=== PATIENT | female | born 1960 | race Caucasian/White ===

== ENCOUNTER 2021-07-26 20:40 | Emergency (ER) | payer OTHER ==
[~2021-07-26] VITALS: Ht 170.2 cm; Wt 59.0 kg
[2021-07-26] MEDS ORDERED: LEVOTHYROXINE25 MCG (21:26)
[2021-07-26] MEDS ORDERED: BACTRIM DS TAB1 EACH PO (22:56)
[2021-07-26] MEDS ORDERED: PEPCID AC20 MG PO (22:56)
[2021-07-26] MEDS ORDERED: NAPROXEN375 MG PO (22:56)
[2021-07-26] MEDS ORDERED: PROTONIX20 MG PO (22:56)
[2021-07-26] MEDS ORDERED: CARAFATE1 GM PO (22:56)
== END 2021-07-26 23:04 | disposition home or self-care (01) ==
LOC: ER 20:40
DX: S61.051A Open bite of right thumb without damage to nail, initial encounter (principal); L08.89 Other specified local infections of the skin and subcutaneous tissue; W54.0XXA Bitten by dog, initial encounter; Y93.89 Activity, other specified; Y92.018 Other place in single-family (private) house as the place of occurrence of the external cause; Y99.8 Other external cause status

== ENCOUNTER 2021-08-31 13:13 | Emergency (ER) | payer OTHER ==
[~2021-08-31] VITALS: Ht 170.2 cm; Wt 59.0 kg
[~2021-08-31 13:13] MED LIST: BACTRIM DS TAB1 EACH PO; CARAFATE1 GM PO; LEVOTHYROXINE25 MCG; NAPROXEN375 MG PO; PEPCID AC20 MG PO; PROTONIX20 MG PO
[2021-08-31] MEDS ORDERED: TIROSINT25 MCG PO (13:25)
== END 2021-08-31 16:08 | disposition home or self-care (01) ==
LOC: ER 13:13
DX: T16.2XXA Foreign body in left ear, initial encounter (principal); X58.XXXA Exposure to other specified factors, initial encounter; Y93.E8 Activity, other personal hygiene; Y92.89 Other specified places as the place of occurrence of the external cause; Y99.8 Other external cause status